=== PATIENT | female | born 1955 | race Caucasian/White ===

== ENCOUNTER 2023-07-08 09:21 | Inpatient (IN) | payer MEDICARE ==
[~2023-07-08] VITALS: Ht 172.7 cm; Wt 43.1 kg
[2023-07-08 10:21] LABS: BASOPHILS % 0.5 % (0.0-1.0); EOSINOPHILS % 0.1 % (0.0-6.0); HEMOGLOBIN 13.7 g/dL (12.0-16.0); LYMPHOCYTES % 11.2 % (18.0-39.1); MEAN CORPUSCULAR HEMOGLOBIN 37.5 pg (28-32); MEAN CORPUSCULAR HGB CONC 34.3 g/dL (31-35); MEAN CORPUSCULAR VOLUME 109.6 fL (81-99); MONOCYTES # (AUTO) 0.6 (0.2-0.8); MONOCYTES % 6.5 % (4.4-11.3); NEUTROPHILS # (AUTO) 6.9 (2.1-6.9); NEUTROPHILS % 80.5 % (38.7-80.0); PLATELET COUNT 264 x10e3/uL (140-360); RED BLOOD COUNT 3.65 x10e6/uL (3.6-5.1); RED CELL DISTRIBUTION WIDTH 11.6 % (11.7-14.4); WHITE BLOOD COUNT 8.56 x10e3/uL (4.8-10.8)
[2023-07-08 10:37] LABS: ALBUMIN 3.4 g/dL (3.5-5.0); ALBUMIN/GLOBULIN RATIO 0.9 (0.8-2.0); ANION GAP 26.3 mmol/L (8-16); BILIRUBIN,TOTAL 0.9 mg/dL (0.2-1.2); CALCIUM 9.1 mg/dL (8.4-10.2); CREATININE, SERUM 1.38 mg/dL (0.57-1.11)
[2023-07-08] MEDS: LACTATED RINGER'S 1,000 ML INJ ONE ×2 (10:49→14:42)
[2023-07-08 10:50] LABS: POTASSIUM 2.3 mmol/L (3.5-5.1)
[2023-07-08] MEDS: POTASSIUM CHLORIDE 20 MEQ TAB CR PO ONE (11:16)
[2023-07-08] MEDS: FOLIC ACID 1 MG TAB PO SCH (11:16)
[2023-07-08] MEDS: POTASSIUM CHLORIDE 10MEQ/100ML 100 ML IV ONE (11:17)
[2023-07-08] MEDS: CYANOCOBALAMIN 1,000 MCG TAB PO ONE (12:02)
[2023-07-08 13:42] LABS: ANION GAP 21.2 mmol/L (8-16); CALCIUM 8.6 mg/dL (8.4-10.2); CREATININE, SERUM 1.04 mg/dL (0.57-1.11)
[2023-07-08 13:43] LABS: POTASSIUM 3.2 mmol/L (3.5-5.1)
[2023-07-08 17:28] VITALS: PULSE 94; RESP 21; O2SAT 98
[2023-07-08 19:25] VITALS: PULSE 92; RESP 18; O2SAT 99
[2023-07-08 20:00] VITALS: BP 108/79; PULSE 86; RESP 16; TEMP 97.4; O2SAT 100
[2023-07-08] MEDS: POTASSIUM CHLORIDE 20 MEQ TAB CR PO STA (20:42)
[2023-07-08] MEDS: HEPARIN SOD (PORCINE) 5,000 UNIT/ML VIAL SC SCH (20:49)
[2023-07-08] MEDS: POTASSIUM CHLORIDE 20MEQ/100ML 100 ML IV SCH (22:04)
[2023-07-09] VITALS (10 sets, daily range): BP systolic 95–125; BP diastolic 61–94; PULSE 77–107; RESP 16–18; TEMP 97.6–98; O2SAT 96–100
[2023-07-09 06:37] LABS: BASOPHILS % 0.4 % (0.0-1.0); EOSINOPHILS % 0.2 % (0.0-6.0); HEMATOCRIT 33.4 % (34.2-44.1); HEMOGLOBIN 11.4 g/dL (12.0-16.0); LYMPHOCYTES # (AUTO) 1.5 (1.0-3.2); LYMPHOCYTES % 27.9 % (18.0-39.1); MEAN CORPUSCULAR HGB CONC 34.1 g/dL (31-35); MEAN CORPUSCULAR VOLUME 111.3 fL (81-99); MONOCYTES # (AUTO) 0.6 (0.2-0.8); MONOCYTES % 10.4 % (4.4-11.3); NEUTROPHILS # (AUTO) 3.2 (2.1-6.9); NEUTROPHILS % 59.8 % (38.7-80.0); PLATELET COUNT 211 x10e3/uL (140-360); RED CELL DISTRIBUTION WIDTH 11.6 % (11.7-14.4); WHITE BLOOD COUNT 5.27 x10e3/uL (4.8-10.8)
[2023-07-09 07:03] LABS: INR 0.94; PROTHROMBIN TIME 12.8 seconds (11.9-14.5)
[2023-07-09 07:17] LABS: ANION GAP 17.4 mmol/L (8-16); CALCIUM 8.6 mg/dL (8.4-10.2); CREATININE, SERUM 0.74 mg/dL (0.57-1.11)
[2023-07-09 07:21] LABS: POTASSIUM 3.4 mmol/L (3.5-5.1)
[2023-07-09 07:37] LABS: ALBUMIN 2.8 g/dL (3.5-5.0); BILIRUBIN,DIRECT 0.4 mg/dL (0.0-0.5); BILIRUBIN,TOTAL 0.6 mg/dL (0.2-1.2); MAGNESIUM 1.5 MG/DL (1.3-2.1); TOTAL PROTEIN 5.6 g/dL (6.5-8.1)
[2023-07-09 07:46] LABS: FOLATE 4.3 ng/mL (7.0-15.4)
[2023-07-09 07:57] LABS: THYROID STIMULATING HORMONE 2.103 uIU/mL (0.350-4.940)
[2023-07-09 09:28] LABS: PLATELET ESTIMATE ADEQUATE; PLATELET MORPHOLOGY COMMENT NORMAL; RBC MORPHOLOGY COMMENT NORMAL
[2023-07-09] MEDS ORDERED: THIAMINE HCL INJ 100 MG/ML 2ML VIAL IV ONE (15:15)
[2023-07-09] MEDS: DEXTROSE 5% 1,000 ML IV SCH (16:00)
[2023-07-10] VITALS (7 sets, daily range): BP systolic 96–117; BP diastolic 68–80; PULSE 79–117; RESP 17–19; TEMP 97.7–98.3; O2SAT 98–100
[2023-07-10] MEDS ORDERED: ACETAMINOPHEN 325 MG TAB PO PRN (01:30)
[2023-07-10] MEDS ORDERED: MAGNESIUM/ALUMINUM/SIMETHICONE 30 ML UDC PO PRN (01:30)
[2023-07-10] MEDS ORDERED: HYDRALAZINE HCL 20 MG/ML VIAL IV PRN (01:30)
[2023-07-10] MEDS ORDERED: GUAIFENESIN/DEXTROMETHORPHAN LIQD 5 ML UDC PO PRN (01:30)
[2023-07-10] MEDS ORDERED: ONDANSETRON HCL INJ 2MG/ML 2ML 2 MG/ML VIAL IV PRN (01:30)
[2023-07-10] MEDS: POTASSIUM CHLORIDE 20MEQ/100ML 100 ML IV ONE (02:21)
[2023-07-10] MEDS: MULTIVITAMINS/MINERALS TAB PO SCH ×2 (09:00→09:42)
[2023-07-10] MEDS: MAGNESIUM OXIDE 400 MG TAB PO SCH (09:42)
[2023-07-10] MEDS: CYANOCOBALAMIN 1,000 MCG TAB PO SCH (09:43)
[2023-07-10] MEDS: THIAMINE HCL 100 MG TAB PO SCH ×2 (09:43→14:26)
[2023-07-11] VITALS (8 sets, daily range): BP systolic 100–108; BP diastolic 67–70; PULSE 64–82; RESP 16–19; TEMP 97.5–98.9; O2SAT 95–100
[2023-07-11 07:05] LABS: ANION GAP 11.6 mmol/L (8-16); CALCIUM 8.7 mg/dL (8.4-10.2); CREATININE, SERUM 0.63 mg/dL (0.57-1.11); POTASSIUM 3.6 mmol/L (3.5-5.1)
[2023-07-11] MEDS: POTASSIUM CHLORIDE 20MEQ/100ML 100 ML IV ONE (16:14)
[2023-07-12] VITALS (9 sets, daily range): BP systolic 92–138; BP diastolic 40–84; PULSE 64–88; RESP 15–18; TEMP 97.8–98.8; O2SAT 95–100
[2023-07-12] MEDS: MUPIROCIN 2% OINT 22 GM TUBE TOP SCH (17:14)
[2023-07-13 03:45] VITALS: BP 130/84; PULSE 78; RESP 18; TEMP 98.4; O2SAT 99
[2023-07-13 09:14] LABS: RAPID PLASMA REAGIN Non Reactive (Non Reactive)
[2023-07-13 09:59] VITALS: BP 126/80; PULSE 80; RESP 17; TEMP 98.7; O2SAT 97
[2023-07-13 11:35] VITALS: BP 123/74; PULSE 82; RESP 15; TEMP 98; O2SAT 100
[2023-07-13] MEDS: DRONABINOL 2.5MG PO SCH (17:45)
[2023-07-13 17:48] VITALS: BP 120/71; PULSE 80; RESP 16; TEMP 98.1; O2SAT 100
[2023-07-13 20:45] VITALS: BP 102/77; PULSE 87; RESP 17; TEMP 98; O2SAT 99
[2023-07-13 22:20] VITALS: BP 137/81; PULSE 110; RESP 18; TEMP 98.8; O2SAT 100
[2023-07-14] VITALS (8 sets, daily range): BP systolic 100–113; BP diastolic 61–71; PULSE 73–87; RESP 16–18; TEMP 97.6–98.4; O2SAT 98–100
[2023-07-15] VITALS (10 sets, daily range): BP systolic 99–123; BP diastolic 60–77; PULSE 77–92; RESP 16–20; TEMP 98–98.4; O2SAT 97–100
[2023-07-15] MEDS: MELATONIN 3 MG TAB PO PRN (20:31)
[2023-07-16 04:55] VITALS: BP 110/71; PULSE 76; RESP 16; TEMP 97.2; O2SAT 97
[2023-07-16 05:11] LABS: VITAMIN B1 152.1 nmol/L (66.5-200.0)
[2023-07-16 08:38] VITALS: BP 109/74; PULSE 74; RESP 17; TEMP 97.9; O2SAT 100
[2023-07-16 12:47] VITALS: BP 90/72; PULSE 72; RESP 16; TEMP 98.2; O2SAT 97
== END 2023-07-16 13:38 | disposition hospice, inpatient (51) | DRG 640 ==
LOC: ER 09:32 → ERHOLD 17:17 → MED/SURG3 18:40
PROVIDERS: ADMIT Internal Medicine; ATTEND Internal Medicine
PROC: 0HBRXZZ Excision of Toe Nail, External Approach (ICD-10-PCS; principal; 2023-07-13)
PROC: 0HBRXZZ Excision of Toe Nail, External Approach (ICD-10-PCS; 2023-07-13)
PROC: 0HBRXZZ Excision of Toe Nail, External Approach (ICD-10-PCS; 2023-07-13)
PROC: 0HBRXZZ Excision of Toe Nail, External Approach (ICD-10-PCS; 2023-07-13)
PROC: 0HBRXZZ Excision of Toe Nail, External Approach (ICD-10-PCS; 2023-07-13)
PROC: 0HBRXZZ Excision of Toe Nail, External Approach (ICD-10-PCS; 2023-07-13)
PROC: 0HBRXZZ Excision of Toe Nail, External Approach (ICD-10-PCS; 2023-07-13)
PROC: 0HBRXZZ Excision of Toe Nail, External Approach (ICD-10-PCS; 2023-07-13)
PROC: 0HBRXZZ Excision of Toe Nail, External Approach (ICD-10-PCS; 2023-07-13)
PROC: 0HBRXZZ Excision of Toe Nail, External Approach (ICD-10-PCS; 2023-07-13)
DX: R62.7 Adult failure to thrive (principal); E43 Unspecified severe protein-calorie malnutrition; G93.41 Metabolic encephalopathy; G92.8 Other toxic encephalopathy; Z68.1 Body mass index [BMI] 19.9 or less, adult; F10.27 Alcohol dependence with alcohol-induced persisting dementia; F10.288 Alcohol dependence with other alcohol-induced disorder; G31.2 Degeneration of nervous system due to alcohol; G62.1 Alcoholic polyneuropathy; I95.9 Hypotension, unspecified; R00.0 Tachycardia, unspecified; E87.6 Hypokalemia; E86.0 Dehydration; E16.2 Hypoglycemia, unspecified; R53.81 Other malaise; D75.89 Other specified diseases of blood and blood-forming organs; F02.80 Dementia in other diseases classified elsewhere, unspecified severity, without behavioral disturbance, psychotic disturbance, mood disturbance, and anxiety; F17.210 Nicotine dependence, cigarettes, uncomplicated; J44.9 Chronic obstructive pulmonary disease, unspecified; E88.A Wasting disease (syndrome) due to underlying condition; E56.9 Vitamin deficiency, unspecified; Y90.9 Presence of alcohol in blood, level not specified; B35.1 Tinea unguium; R06.82 Tachypnea, not elsewhere classified; Z74.01 Bed confinement status; Z11.52 Encounter for screening for COVID-19; Z51.5 Encounter for palliative care
CPT/HCPCS: 36415; 70450; 70551; 71045; 72141; 80048; 80053; 80076; 82140; 82607; 82746; 83036; 83540; 83735; 83880; 84207; 84425; 84443; 84466; 84484; 85025; 85610; 86592; 93005; 94799; 99252; 99284; J1644; J3411; J3480; J7070; U0002